=== PATIENT | female | born 1990 | race Caucasian/White ===

== ENCOUNTER 2017-11-27 18:37 | Emergency (ER) | payer SELFPAY ==
[~2017-11-27] VITALS: Ht 175.3 cm; Wt 108.9 kg
[~2017-11-27 18:37] MED LIST: ESCITALOPRAM OX10 MG PO; NORTRIPTYLINE H25 MG PO
== END 2017-11-27 20:58 | disposition home or self-care (01) ==
LOC: ER 18:37
DX: R50.9 Fever, unspecified (principal); R05 Cough; J11.1 Influenza due to unidentified influenza virus with other respiratory manifestations
CPT/HCPCS: 87400; 99283

== ENCOUNTER 2019-05-13 22:03 | Emergency (ER) | payer BC ==
[~2019-05-13] VITALS: Ht 175.3 cm; Wt 108.9 kg
--- NOTE | 2019-05-14 00:17 | Diagnostic Imaging Report ---
HAND 3+ VIEWS RIGHT - 3 views HISTORY: Pain COMPARISON: None available. FINDINGS: See impression. IMPRESSION: Mildly displaced fracture of the distal fifth metacarpal bone with associated soft tissue swelling. Signed by: Dr. Deon Davis MD on 05/14/2019 12:13 AM
[2019-05-14 01:21] VITALS: BP 127/93
[2019-05-14] MEDS ORDERED: HYDROCODONE/APAP 10MG-325MG TAB PO ONE (02:00)
[2019-05-14] MEDS ORDERED: HYDROCODONE/APAP 10MG-325MG TAB ONE (02:05)
[2019-05-14] MEDS ORDERED: ULTRAM50 MG PO (02:12)
== END 2019-05-14 02:32 | disposition home or self-care (01) ==
LOC: ER 22:03
DX: S62.316A Displaced fracture of base of fifth metacarpal bone, right hand, initial encounter for closed fracture (principal); W18.30XA Fall on same level, unspecified, initial encounter; Y92.008 Other place in unspecified non-institutional (private) residence as the place of occurrence of the external cause
CPT/HCPCS: 99283